=== PATIENT | male | born 1965 | race American Indian/Alaskan Native ===

== ENCOUNTER 2019-07-27 17:50 | Emergency (ER) | payer SELFPAY ==
--- NOTE | 2019-07-27 18:15 | Event Note ---
ED Screening Note ED Screening Note: 53 y/o male with pmh of CHF, Depression, Anxiety reports having an addiction to any type of illicit drugs. Was taking Remeron then consumed ETOH and THC and began to feel very bad with dizziness, headache and feels just "weird and bad" Wants help to get off of the ETOH and Drugs too!!! This initial assessment/diagnostic orders/clinical plan/treatment(s) is/are subject to change based on patients health status, clinical progression and re- assessment by fellow clinical providers in the ED. Further treatment and workup at subsequent clinical providers discretion. Patient/guardian urged not to elope from the ED as their condition may be serious if not clinically assessed and managed. Initial orders include:
[2019-07-27 19:21] LABS: Hemoglobin 8.5 gm/dl (11.8-15.2); Mean Corpuscular HGB Conc 30 % (32-34); Mean Corpuscular Volume 76 fl (84-94); Platelet Count 618 K/mm3 (140-440); Red Blood Count 3.67 M/mm3 (3.65-5.03)
[2019-07-27 19:28] LABS: Red Cell Distribution Width 20.6 % (13.2-15.2)
[2019-07-27 19:38] LABS: Alanine Aminotransferase 20 units/L (7-56); Albumin 4.2 g/dL (3.9-5); BUN/Creatinine Ratio 16; Blood Urea Nitrogen 18 mg/dL (9-20); Calcium 9.8 mg/dL (8.4-10.2); Hemolysis Index 4
[2019-07-27 19:55] LABS: Basophils % (Manual) 0 % (0.0-1.8); Eosinophils % (Manual) 0 % (0.0-4.3); Total Cells Counted 100
[2019-07-27 19:56] LABS: Anisocytosis 1+; Hypochromasia 2+; Large Platelets 1+; Ovalocytes 1+; Platelet Estimate Appears Increased
[2019-07-27 19:57] LABS: Tear Drop Cells 1+
[2019-07-27 21:20] VITALS: BP 138/61
--- NOTE | 2019-07-27 22:39 | Emergency Department Report ---
ED Psych HPI - General Chief Complaint: Alcohol Stated Complaint: DIZZY Time Seen by Provider: 07/27/19 18:12 Source: patient, EMS Mode of arrival: Ambulatory - History of Present Illness Initial Comments: Chief complaint "I want rehabi" HPI: Mr. Gary is a 53-year-old male with history of alcohol cocaine marijuana abuse CHF asthma depression anemia who presents with dizziness. He stated that he needs help with substance addiction. He came by EMS. The dizziness occurred after taking a Remeron pill. He denies any pain. He denies suicidal homicidal ideation. MD Complaint: other (desires rehabilitation for alcohol cocaine marijuana abuse) -: Gradual, days(s) (1) Associated Psychiatric Symptoms: depression History of same: Yes Quality: constant Improves With: none Worsens With: none Context: recent alcohol abuse, recent drug abuse Associated Symptoms: denies other symptoms Treatments Prior to Arrival: none - Related Data Allergies Allergy/AdvReac Type Severity Reaction Status Date / Time haloperidol [From Haldol] Allergy Unknown Verified 07/27/19 18:02 ED Review of Systems ROS: Stated complaint: DIZZY Other details as noted in HPI Comment: All other systems reviewed and negative Constitutional: denies: fever, malaise Respiratory: denies: cough Cardiovascular: denies: chest pain Psychiatric: depression ED Past Medical Hx - Past Medical History Previous Medical History?: Yes Hx Congestive Heart Failure: Yes Hx Psychiatric Treatment: Yes (mood disorder, depression) Hx Asthma: Yes Additional medical history: anemia - Surgical History Past Surgical History?: Yes Additional Surgical History: hernia repair - Social History Smoking Status: Current Every Day Smoker Substance Use Type: Cocaine, Marijuana ED Physical Exam - General Limitations: No Limitations General appearance: alert, in no apparent distress, other (appears healthy and well) - Head Head exam: Present: atraumatic, normocephalic - Eye Eye exam: Present: normal appearance - ENT ENT exam: Present: mucous membranes moist - Neck Neck exam: Present: normal inspection, full ROM - Respiratory Respiratory exam: Present: normal lung sounds bilaterally. Absent: respiratory distress, wheezes, rales, rhonchi - Cardiovascular Cardiovascular Exam: Present: regular rate, normal rhythm, normal heart sounds. Absent: systolic murmur, diastolic murmur, rubs, gallop - GI/Abdominal GI/Abdominal exam: Present: soft, normal bowel sounds. Absent: distended, tenderness, guarding, rebound - Rectal Rectal exam: Present: deferred - Extremities Exam Extremities exam: Present: normal inspection - Neurological Exam Neurological exam: Present: alert, oriented X3 - Psychiatric Psychiatric exam: Present: normal affect, normal mood. Absent: flat affect, manic, homicidal ideation, suicidal ideation - Skin Skin exam: Present: warm, dry, intact, normal color. Absent: rash ED Course Vital Signs 07/27/19 07/27/19 07/27/19 18:06 21:10 21:15 Temperature 98.1 F Pulse Rate 104 H 94 H Respiratory 18 15 22 Rate Blood Pressure 121/63 138/61 O2 Sat by Pulse 95 99 Oximetry ED Medical Decision Making - Lab Data Result diagrams: 07/27/19 18:48 07/27/19 18:48 Laboratory Results - last 24 hr 07/27/19 07/27/19 07/27/19 18:48 18:48 18:48 WBC 8.5 RBC 3.67 Hgb 8.5 L Hct 28.0 L MCV 76 L MCH 23 L MCHC 30 L RDW 20.6 H Plt Count 618 H Add Manual Diff Complete Total Counted 100 Seg Neuts % (Manual) 84.0 H Band Neutrophils % 0 Lymphocytes % (Manual) 8.0 L Reactive Lymphs % (Man) 0 Monocytes % (Manual) 8.0 H Eosinophils % (Manual) 0 Basophils % (Manual) 0 Metamyelocytes % 0 Myelocytes % 0 Promyelocytes % 0 Blast Cells % 0 Nucleated RBC % Not Reportable Seg Neutrophils # Man 7.1 Band Neutrophils # 0.0 Lymphocytes # (Manual) 0.7 L Abs React Lymphs (Man) 0.0 Monocytes # (Manual) 0.7 Eosinophils # (Manual) 0.0 Basophils # (Manual) 0.0 Metamyelocytes # 0.0 Myelocytes # 0.0 Promyelocytes # 0.0 Blast Cells # 0.0 WBC Morphology Not Reportable Hypersegmented Neuts Not Reportable Hyposegmented Neuts Not Reportable Hypogranular Neuts Not Reportable Smudge Cells Not Reportable Toxic Granulation Not Reportable Toxic Vacuolation Not Reportable Dohle Bodies Not Reportable Pelger-Huet Anomaly Not Reportable Erick Rods Not Reportable Platelet Estimate Appears increased Clumped Platelets Not Reportable Plt Clumps, EDTA Not Reportable Large Platelets 1+ Giant Platelets Not Reportable Platelet Satelliting Not Reportable Plt Morphology Comment Not Reportable RBC Morphology Not Reportable Dimorphic RBCs Not Reportable Polychromasia Not Reportable Hypochromasia 2+ Poikilocytosis Not Reportable Anisocytosis 1+ Microcytosis Not Reportable Macrocytosis Not Reportable Spherocytes Not Reportable Pappenheimer Bodies Not Reportable Sickle Cells Not Reportable Target Cells Not Reportable Tear Drop Cells 1+ Ovalocytes 1+ Helmet Cells Not Reportable [place] Bodies Not Reportable [place] Rings Not Reportable [place] Cells Not Reportable Bite Cells Not Reportable Crenated Cell Not Reportable Elliptocytes Not Reportable Acanthocytes (Spur) Not Reportable Rouleaux Not Reportable Hemoglobin C Crystals Not Reportable Schistocytes Not Reportable Malaria parasites Not Reportable Jacob Bodies Not Reportable Hem Pathologist Commnt No Sodium 142 Potassium 4.7 Chloride 109.4 H Carbon Dioxide 19 L Anion Gap 18 BUN 18 Creatinine 1.1 Estimated GFR > 60 BUN/Creatinine Ratio 16 Glucose 102 H Calcium 9.8 Total Bilirubin < 0.20 AST 30 ALT 20 Alkaline Phosphatase 109 Total Protein 8.0 Albumin 4.2 Albumin/Globulin Ratio 1.1 Lipase 51 Salicylates Acetaminophen Plasma/Serum Alcohol 0.06 07/27/19 07/27/19 18:48 18:48 WBC RBC Hgb Hct MCV MCH MCHC RDW Plt Count Add Manual Diff Total Counted Seg Neuts % (Manual) Band Neutrophils % Lymphocytes % (Manual) Reactive Lymphs % (Man) Monocytes % (Manual) Eosinophils % (Manual) Basophils % (Manual) Metamyelocytes % Myelocytes % Promyelocytes % Blast Cells % Nucleated RBC % Seg Neutrophils # Man Band Neutrophils # Lymphocytes # (Manual) Abs React Lymphs (Man) Monocytes # (Manual) Eosinophils # (Manual) Basophils # (Manual) Metamyelocytes # Myelocytes # Promyelocytes # Blast Cells # WBC Morphology Hypersegmented Neuts Hyposegmented Neuts Hypogranular Neuts Smudge Cells Toxic Granulation Toxic Vacuolation Dohle Bodies Pelger-Huet Anomaly Erick Rods Platelet Estimate Clumped Platelets Plt Clumps, EDTA Large Platelets Giant Platelets Platelet Satelliting Plt Morphology Comment RBC Morphology Dimorphic RBCs Polychromasia Hypochromasia Poikilocytosis Anisocytosis Microcytosis Macrocytosis Spherocytes Pappenheimer Bodies Sickle Cells Target Cells Tear Drop Cells Ovalocytes Helmet Cells [place] Bodies [place] Rings [place] Cells Bite Cells Crenated Cell Elliptocytes Acanthocytes (Spur) Rouleaux Hemoglobin C Crystals Schistocytes Malaria parasites Jacob Bodies Hem Pathologist Commnt Sodium Potassium Chloride Carbon Dioxide Anion Gap BUN Creatinine Estimated GFR BUN/Creatinine Ratio Glucose Calcium Total Bilirubin AST ALT Alkaline Phosphatase Total Protein Albumin Albumin/Globulin Ratio Lipase Salicylates < 0.3 L Acetaminophen < 5.0 L Plasma/Serum Alcohol - Medical Decision Making Mr. Gary presents with request for detox rehabilitation program. I explained that there are outpatient resources provided by our psychiatric team. Dizziness after taking medication was not persistent. I do not detect neurological de ficit on physical exam. CBC indicative of known anemia. Workup otherwise unremarkable. Discharge home with outpatient resources for drug alcohol rehabilitation. Critical care attestation.: If time is entered above; I have spent that time in minutes in the direct care o f this critically ill patient, excluding procedure time. ED Disposition Clinical Impression: Alcohol abuse, Polysubstance abuse, Dizziness Disposition: [id number] TO HOME OR SELFCARE Is pt being admited?: No Does the pt Need Aspirin: No Condition: Stable Instructions: Dizziness (ED) Additional Instructions: Please see the list of resources provided for you.
== END 2019-07-27 23:00 | disposition home or self-care (01) ==
LOC: ED 17:50
DX: R42 Dizziness and giddiness (principal); F10.10 Alcohol abuse, uncomplicated; F19.10 Other psychoactive substance abuse, uncomplicated; I50.9 Heart failure, unspecified; F39 Unspecified mood [affective] disorder; F32.9 Major depressive disorder, single episode, unspecified; J45.909 Unspecified asthma, uncomplicated; F17.200 Nicotine dependence, unspecified, uncomplicated; F12.10 Cannabis abuse, uncomplicated; F14.10 Cocaine abuse, uncomplicated; Z88.8 Allergy status to other drugs, medicaments and biological substances
CPT/HCPCS: 36415; 80053; 80320; 83690; 85007; 85025; G0480